=== PATIENT | female | born 1970 | race Caucasian/White ===

== ENCOUNTER 2019-06-27 00:14 | Inpatient (IN) | payer BC ==
[2019-06-27] VITALS (24 sets, daily range): BP systolic 82–140; BP diastolic 58–88
[~2019-06-27] VITALS: Ht 165.1 cm; Wt 75.3 kg
[2019-06-27] MEDS ORDERED: NALOXONE 2 MG/2 ML DISP.SYRIN. ONE (00:31)
[2019-06-27 01:00] LABS: BASO # 0.1 x10^3/uL (0.0-0.2); BASO % 2 % (0-3); EOS # 0.2 x10^3/uL (0.0-0.7); EOS % 4 % (0-3); HEMATOCRIT 36.8 % (36.0-47.0); HEMOGLOBIN 11.8 g/dL (12.0-15.5); LYMPH # 2.3 x10^3/uL (1.0-4.8); LYMPH % 47 % (24-48); MEAN CORPUSCULAR HEMOGLOBIN 27 pg (25-35); MEAN CORPUSCULAR HGB CONC 32 g/dL (31-37); MEAN CORPUSCULAR VOLUME 84 fL (79-100); MONO # 0.4 x10^3/uL (0.0-1.1); MONO % 8 % (0-9); NEUT # 1.9 x10^3/uL (1.8-7.7); NEUT % 40 % (31-73); PLATELET COUNT 183 x10^3/uL (140-400); RED CELL DISTRIBUTION WIDTH 16.1 % (11.5-14.5); WHITE BLOOD COUNT 4.9 x10^3/uL (4.0-11.0)
[2019-06-27] MEDS ORDERED: ROCURONIUM 50 MG/5 ML VIAL. IV ONE (01:00)
[2019-06-27] MEDS ORDERED: IV NORMAL SALINE 1000ML BAG 1,000 ML IV ONE (01:00)
[2019-06-27 01:05] LABS: BILIRUBIN,URINE NEGATIVE (NEG); CLARITY,URINE CLEAR; COLOR,URINE YELLOW; NITRITE,URINE NEGATIVE (NEG); PH,URINE 6.5; PROTEIN,URINE NEGATIVE (NEG-TRACE); UROBILINOGEN,URINE 0.2 mg/dL (0.2 mg/dL)
[2019-06-27 01:09] LABS: PREG TEST PT QUAL NEGATIVE (NEG)
[2019-06-27 01:11] LABS: CALCIUM 7.8 mg/dL (8.5-10.1); CREATININE 0.9 mg/dL (0.6-1.0); GFR 67.4; POTASSIUM 3.2 mmol/L (3.5-5.1)
[2019-06-27 01:13] LABS: AMORPHOUS SEDIMENT,UR PRESENT /HPF; BACTERIA,URINE 0 /HPF (0-FEW); BARBITURATES NEG (NEG); BENZODIAZEPINES NEG (NEG); CANNABINOIDS NEG (NEG); COCAINE NEG (NEG); METHADONE NEG (NEG); OPIATES NEG (NEG); PHENCYCLIDINE NEG (NEG); RBC,URINE 0 /HPF (0-2); SQUAMOUS EPITHELIAL CELL,UR FEW /LPF; WBC,URINE OCC /HPF (0-4)
[2019-06-27] MEDS ORDERED: NALOXONE 2 MG/2 ML DISP.SYRIN. IV ONE (01:15)
[2019-06-27 01:17] LABS: AMPHETAMINE/METHAMPHETAMINE NEG (NEG)
[2019-06-27 01:18] LABS: ALBUMIN 3.5 g/dL (3.4-5.0); ALBUMIN/GLOBULIN RATIO 0.9 (1.0-1.7); TOTAL BILIRUBIN 0.2 mg/dL (0.2-1.0); TOTAL PROTEIN 7.3 g/dL (6.4-8.2)
--- NOTE | 2019-06-27 01:20 | RAD ---
EXAM: CHEST 1 VIEW History: Post intubation COMPARISON: None available. TECHNIQUE: Single portable radiograph of the chest FINDINGS: The ET tube is identified in the trachea just above the level of the clavicles. The feeding tube is identified below the left diaphragm likely within the stomach. The lungs are clear bilaterally. The costophrenic sulci are clear and well demarcated. IMPRESSION: 1. ET tube, feeding tube in place. 2. The lungs are clear. Electronically signed by: Ubaldo Parker MD (06/27/2019 1:17 AM) [facility]
[2019-06-27] MEDS ORDERED: DEXTROSE 50% 25 GM / 50ML DISP.SYRIN. IV ONE (01:30)
[2019-06-27] MEDS ORDERED: SUCCINYLCHOLINE 200 MG/10 ML VIAL. ONE (01:39)
[2019-06-27] MEDS ORDERED: ETOMIDATE 20 MG/10 ML VIAL. IV ONE ×2 (01:39→07:00)
[2019-06-27] MEDS ORDERED: PROPOFOL 50 ML IV ONE ×2 (02:12→02:30)
[2019-06-27 02:20] LABS: BASE EXCESS COOX -4 mmol/L (-3-3); HCO3 COOX 21 mmol/L (21-28); METHEMOGLOBIN 0.5 % (0.0-1.9); OXYHEMOGLOBIN 98.2 %; PCO2 COOX 34 mmHg (35-46); PO2 COOX > 503 mmHg (75-108); SAT O2 COOX 99 % (92-99)
[2019-06-27] MEDS ORDERED: ONDANSETRON PF 4 MG/2 ML VIAL. IV PRN (02:30)
--- NOTE | 2019-06-27 02:59 | RAD ---
CT HEAD INDICATION: Altered mental status COMPARISON: None Available. Exposure: One or more of the following individualized dose reduction techniques were utilized for this examination: 1. Automated exposure control 2. Adjustment of the mA and/or kV according to patient size 3. Use of iterative reconstruction technique TECHNIQUE: 5 mm contiguous axial images were obtained from the skull base to the vertex in both bone and soft tissue algorithm. FINDINGS: No abnormal attenuation within the brain parenchyma. No evidence of acute intracranial hemorrhage. No extra-axial fluid collections. No mass effect or midline shift. Ventricular size is appropriate. Basal cisterns are patent. No fractures identified.Roy-white differentiation is preserved.Globes and orbits are within normal limits. Small mucous retention cyst or polyp identified in the right maxillary sinus. IMPRESSION: No acute intracranial findings. Electronically signed by: Ubaldo Parker MD (06/27/2019 2:57 AM) [id number]
[2019-06-27] MEDS ORDERED: CYCL10TA2 PO (04:09)
[2019-06-27] MEDS ORDERED: TOPI25TA52 PO (04:09)
--- NOTE | 2019-06-27 04:56 | NUR ---
Pt brought on bed to ICU room 105 by RT and two ED nurses at 0300. Pt transferred to ICU bed with 4x assist. Pt is intubated, and was bagged with oxygen upon transferring beds, but quickly placed onto the ventilator. Pt currently sedated well on propofol. VSS upon admission, pt afebrile. PERLLA. Lungs coarse-sounding when auscultated. Pts skin is cool to the touch and pale. Multiple scratch-like areas noted to pts bilateral upper thighs. Pt within site of care team; will continue to monitor.
--- NOTE | 2019-06-27 05:01 | PHYS DOC ---
Past Medical History Past Medical History: No Pertinent History Past Surgical History: Gastric Bypass Adult General Chief Complaint Chief Complaint: OVERDOSE HPI HPI Patient is a 48 year old with a mass unresponsive with respiratory failure secondary to intentional drug overdose. Patient told mother that she took a small handful of Flexeril and Topamax take dispute. Patient initially conversant and ambulatory on EMS arrival with decreased level of consciousness or depression during transport. GCS 8 on ED arrival. 4 mg of Narcan without response intubated shortly after ED arrival for airway protection. [] Review of Systems Review of Systems ROS as per HPI All other systems were reviewed and found to be within normal limits, except as documented in this note. Current Medications Current Medications Current Medications Medications (Trade) Dose Ordered Sig/Keiko Start Time Stop Time Status Last Admin Dose Admin Naloxone HCl (Narcan) 2 mg STK-MED ONCE 06/27/19 00:31 06/27/19 00:32 DC Physical Exam Physical Exam Constitutional: Unresponsive with respiratory depression.. [] HENT: Normocephalic, atraumatic, bilateral external ears normal, oropharynx moist, no oral exudates, nose normal. [] Eyes: Sluggishly reactive pupils, 2 mm and equal[] Neck: Supple [] Cardiovascular:Heart rate regular rhythm, no murmur [] Lungs & Thorax: Shallow respirations[] Abdomen: Bowel sounds normal, soft. [] Skin: Warm, dry. [] Back: No tenderness. Neurologic:GCS 8. [] Current Patient Data Vital Signs Vital Signs Date Time Temp Pulse Resp B/P (MAP) Pulse Ox O2 Delivery O2 Flow Rate FiO2 06/27/19 00:47 100 Ventilator 06/27/19 00:46 84 13 172/108 (129) 06/27/19 00:14 97.4 97.4 Lab Values Laboratory Tests Test 06/27/19 00:25 White Blood Count 4.9 x10^3/uL (4.0-11.0) Red Blood Count 4.40 x10^6/uL (3.50-5.40) Hemoglobin 11.8 g/dL (12.0-15.5) L Hematocrit 36.8 % (36.0-47.0) Mean Corpuscular Volume 84 fL (79-100) Mean Corpuscular Hemoglobin 27 pg (25-35) Mean Corpuscular Hemoglobin Concent 32 g/dL (31-37) Red Cell Distribution Width 16.1 % (11.5-14.5) H Platelet Count 183 x10^3/uL (140-400) Neutrophils (%) (Auto) 40 % (31-73) Lymphocytes (%) (Auto) 47 % (24-48) Monocytes (%) (Auto) 8 % (0-9) Eosinophils (%) (Auto) 4 % (0-3) H Basophils (%) (Auto) 2 % (0-3) Neutrophils # (Auto) 1.9 x10^3/uL (1.8-7.7) Lymphocytes # (Auto) 2.3 x10^3/uL (1.0-4.8) Monocytes # (Auto) 0.4 x10^3/uL (0.0-1.1) Eosinophils # (Auto) 0.2 x10^3/uL (0.0-0.7) Basophils # (Auto) 0.1 x10^3/uL (0.0-0.2) Sodium Level 144 mmol/L (136-145) Potassium Level 3.2 mmol/L (3.5-5.1) L Chloride Level 108 mmol/L (98-107) H Carbon Dioxide Level 26 mmol/L (21-32) Anion Gap 10 (6-14) Blood Urea Nitrogen 9 mg/dL (7-20) Creatinine 0.9 mg/dL (0.6-1.0) Estimated GFR (Cockcroft-Gault) 67.4 BUN/Creatinine Ratio 10 (6-20) Glucose Level 95 mg/dL (70-99) Calcium Level 7.8 mg/dL (8.5-10.1) L Total Bilirubin 0.2 mg/dL (0.2-1.0) Aspartate Amino Transferase (AST) 42 U/L (15-37) H Alanine Aminotransferase (ALT) 27 U/L (14-59) Alkaline Phosphatase 74 U/L (46-116) Total Protein 7.3 g/dL (6.4-8.2) Albumin 3.5 g/dL (3.4-5.0) Albumin/Globulin Ratio 0.9 (1.0-1.7) L Serum Test, Qualitative Negative (NEG) Ethyl Alcohol Level 289 mg/dL (0-10) H Laboratory Tests 06/27/19 00:25 Laboratory Tests 06/27/19 00:25 EKG EKG [EKG: reviewed] Radiology/Procedures Radiology/Procedures CXR: ETT and OG in correct position CT head: NAD Intubation procedure note Indication: Acute respiratory failure, need for airway protection Consent: emergent Anesthesia used: Etomidate 20 mg, succinylcholine [address] Shivam Hunter. Patient was acute in cardiovascular pulse oximeter monitors and placed on 15 L per a nasal cannula and oxygenated to 99%. Appropriate level of sedation, 7 mm endotracheal tube was inserted through the vocal cords via by mouth assisted laryngoscope. It was secured in place at 23 mm the lips. Location was confirmed with capnometry, visualization, tube fogging, chest rise, breath and sounds and chest x-ray. Patient tolerated procedure well without complications. Course & Med Decision Making Course & Med Decision Making Pertinent Labs and Imaging studies reviewed. (See chart for details) [Intentional drug overdose with decreased LOC and respiratory failure. Patient intubated and hemodynamically stable upon transfer to the ICU..] Dragon Disclaimer Dragon Disclaimer This electronic medical record was generated, in whole or in part, using a voice recognition dictation system. Departure Departure Impression: Primary Impression: Acute respiratory failure with hypoxemia Additional Impressions: Intentional drug overdose AMS (altered mental status) Disposition: ADMITTED INPATIENT Condition: STABLE Referrals: UNKNOWN PCP NAME (PCP) Problem Qualifiers SHIVAM HUNTER DO Jun 27, 2019 05:01
[2019-06-27] MEDS: PROPOFOL 100 ML IV PRN ×3 (05:16→23:50)
[2019-06-27] MEDS: IV NORMAL SALINE 1000ML BAG 1,000 ML IV SCH ×4 (05:19→18:13)
[2019-06-27] MEDS ORDERED: SUCCINYLCHOLINE 200 MG/10 ML VIAL. IV ONE (07:00)
--- NOTE | 2019-06-27 07:09 | PDOC ---
Provider Note Provider Note [id number] acute resp fail OD hypo k cont vent support until more alert see orders DOLLY ENCARNACION MD Jun 27, 2019 07:09
--- NOTE | 2019-06-27 07:26 | CONS ---
DATE OF CONSULTATION: 06/27/2019 I was asked to see this 48-year-old lady for acute respiratory failure. HISTORY OF PRESENT ILLNESS: The patient is on the ventilator and is sedated. She is not able to give any information. All of the information was obtained from chart and nursing staff. She is a 48-year-old lady who told her mother that she took Flexeril and Topamax and also drank alcohol. She was ambulatory on EMS arrival, but decreased level of consciousness on transport. Her GCS was 8 on arrival to the Emergency Room, she was intubated in the Emergency Room. She is currently intubated. She is not responsive. PAST MEDICAL HISTORY: Status post gastric bypass surgery. ALLERGIES: No known drug allergies. MEDICATIONS: Currently, she is on IV fluid. SOCIAL HISTORY: Unable to obtain. The patient is on the ventilator. FAMILY HISTORY: Unable to obtain. The patient is on the ventilator and is not responsive. REVIEW OF SYSTEMS: As mentioned as above, I have discussed the patient with RN, other systems otherwise negative. PHYSICAL EXAMINATION: GENERAL: This is a well-developed lady. VITAL SIGNS: Her O2 saturation on 40% FiO2 is 100%, respiratory rate 16, heart rate 65, temperature 98, and blood pressure 96/67. HEENT: Normocephalic, atraumatic. Pupils equal, round, reactive to light. Throat, she is orally intubated. Nose is clear. NECK: There is no lymphadenopathy or thyromegaly. CARDIOVASCULAR: Regular rate and rhythm. PMI is nondisplaced. CHEST: Inspection is normal. LUNGS: Clear to auscultation. Percussions within normal limit. ABDOMEN: Soft. Bowel sounds are good. There is no mass. EXTREMITIES: There is no edema. LYMPHATICS: There is no lymphadenopathy. NEUROLOGIC: She is on the ventilator, not responsive. SKIN: Warm. LYMPHATICS: There is no lymphadenopathy. I reviewed the following lab data: Chest x-ray: ET tube is in good position. There is no infiltrate. WBC 4.9, hemoglobin 11.8, platelets 183. ABG at 0106, pH 7.4, pCO2 of 34, pO2 more than 500, bicarbonate 21 on 100% FiO2. Sodium 144, potassium 3.2, chloride 108, CO2 26, glucose 95, BUN 9, creatinine 0.9, total bilirubin 0.2, AST 42, ALT 27, alkaline phosphatase 74. test was negative. Urine drug screen was negative. Alcohol level was 289. CT of head, there was no acute abnormality. IMPRESSION: 1. Acute respiratory failure secondary to drug overdose. 2. Intentional drug overdose. 3. Hypokalemia. 4. History of gastric bypass surgery. PLAN AND RECOMMENDATIONS: 1. Titrate FiO2 to keep O2 saturation 94%. 2. Continue ventilator support until the patient is more alert. Vent setting was reviewed. We will do ABG and review and change vent setting per ABG. 3. Start Pepcid and lovenox for prophylaxis. 4. replace k The findings and recommendations were discussed with RN and RT. Thank you very much for allowing me to participate in care of this very nice lady. DOLLY ENCARNACION M.D. DR: Hyaes JOB#: [id number] / [id number] SASHA
[2019-06-27] MEDS ORDERED: ACETAMINOPHEN 650 MG/20.3 ML SOLUTION. PEG PRN (07:30)
[2019-06-27] MEDS ORDERED: ONDANSETRON PF 4 MG/2 ML VIAL. IVP PRN (07:30)
[2019-06-27 07:49] LABS: BASE EXCESS ABG -5 mmol/L (-3-3); HCO3 ABG 21 mmol/L (21-28); PCO2 ABG 38 mmHg (35-46); PO2 ABG 215 mmHg (75-108); SAT O2 ABG 99 % (92-99)
[2019-06-27 07:50] LABS: FIO2 ABG 40
--- NOTE | 2019-06-27 08:01 | NUR ---
Pt belongings include medications, jewelry, and drivers license. Medications put into secure bag and given to pharmacy. Security picked up and secured jewelry and drivers license. Forms put into chart.
[2019-06-27 08:52] LABS: CALCIUM 7.6 mg/dL (8.5-10.1); CREATININE 0.7 mg/dL (0.6-1.0); GFR 90.1; POTASSIUM 3.1 mmol/L (3.5-5.1)
[2019-06-27] MEDS ORDERED: TOPIRAMATE 25 MG TABLET. PO SCH (09:00)
--- NOTE | 2019-06-27 09:00 | NUR ---
Pts 0900 Topramax held due to this being one of the medications pt overdosed on. Consulted with pharmacy that medication has 21 hour half life and should be held x 48 hours to ensure patient is back to baseline.
[2019-06-27] MEDS: FAMOTIDINE 20 MG/2 ML VIAL IVP SCH ×2 (09:43→21:27)
[2019-06-27] MEDS: CHLORHEXIDINE 0.12% 15 ML MOUTHWASH. MM SCH ×2 (09:43→21:28)
--- NOTE | 2019-06-27 09:43 | PDOC1 ---
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 Past Medical History CENTRAL NERVOUS SYSTEM: Migraine Past Surgical History Past Surgical History: No pertinent history Family History Family History: Family History Unknown Social History Smoke: No ALCOHOL: heavy Drugs: None Current Medications Current Medications Current Medications Naloxone HCl (Narcan) 2 mg STK-MED ONCE .ROUTE ; Start 06/27/19 at 00:31; Stop 06/27/19 at 00:32; Status DC Rocuronium [place] (Zemuron) 50 mg 1X ONCE IV Last administered on 06/27/19at 00:57; Start 06/27/19 at 01:00; Stop 06/27/19 at 01:05; Status DC Sodium Chloride 1,000 ml @ 1,000 mls/hr 1X ONCE IV Last administered on 06/27/19at 00:50; Start 06/27/19 at 01:00; Stop 06/27/19 at 01:59; Status DC Naloxone HCl (Narcan) 4 mg 1X ONCE IV Last administered on 06/27/19at 00:36; Start 06/27/19 at 01:15; Stop 06/27/19 at 01:16; Status DC Propofol 100 ml @ 0 mls/hr CONT PRN IV SEE PROTOCOL Last administered on 06/27/19at 05:16; Start 06/27/19 at 01:15 Chlorhexidine Gluconate (Peridex) 15 ml BID MM ; Start 06/27/19 at 09:00 Dextrose (Dextrose 50%-Water Syringe) 25 gm 1X ONCE IV Last administered on 06/27/19at 01:28; Start 06/27/19 at 01:30; Stop 06/27/19 at 01:31; Status DC Succinylcholine Chloride (Anectine) 200 mg STK-MED ONCE .ROUTE ; Start 06/27/19 at 01:39; Stop 06/27/19 at 01:39; Status DC Etomidate (Amidate) 20 mg STK-MED ONCE IV ; Start 06/27/19 at 01:39; Stop 06/27/19 at 01:40; Status DC Propofol 50 ml @ 1.185 mls/ hr 1X ONCE IV Last administered on 06/27/19at 02 :24; Start 06/27/19 at 02:30; Stop 06/28/19 at 20:41 Propofol 50 ml @ As Directed STK-MED ONCE IV ; Start 06/27/19 at 02:12; Stop 06/27/19 at 02:13; Status DC Ondansetron HCl (Zofran) 4 mg PRN Q8HRS PRN IV NAUSEA/VOMITING; Start 06/27/19 at 02:30; Stop 06/27/19 at 07:25; Status DC Sodium Chloride 1,000 ml @ 150 mls/hr Q6H40M IV Last administered on 06/27/19at 05:19; Start 06/27/19 at 02:30; Stop 06/28/19 at 02:29 Etomidate (Amidate) 20 mg 1X ONCE IV Last administered on 06/27/19at 00:42; Start 06/27/19 at 07:00; Stop 06/27/19 at 07:01; Status DC Succinylcholine Chloride (Anectine) 100 mg 1X ONCE IV Last administered on 06/27/19at 00:42; Start 06/27/19 at 07:00; Stop 06/27/19 at 07:01; Status DC Famotidine (Pepcid Vial) 20 mg BID IVP ; Start 06/27/19 at 09:00 Enoxaparin Sodium (Lovenox 40mg Syringe) 40 mg Q24H SQ ; Start 06/27/19 at 09:00 Acetaminophen (Tylenol) 650 mg PRN Q6HRS PRN PEG MILD PAIN / TEMP; Start 06/27/19 at 07:30 Ondansetron HCl (Zofran) 4 mg PRN Q6HRS PRN IVP NAUSEA/VOMITING; Start 06/27/19 at 07:30 Topiramate (Topamax) 25 mg BID PO ; Start 06/27/19 at 09:00 Potassium Chloride/Water 100 ml @ 100 mls/hr Q1H IV ; Start 06/27/19 at 10:00; Stop 06/27/19 at 13:59 Active Scripts Active Reported Cyclobenzaprine Hcl 10 Mg Tablet 1 Tab PO TID Topamax (Topiramate) 25 Mg Tablet 25 Mg PO BID Allergies Allergies: Coded Allergies: No Known Drug Allergies (Unverified , 06/27/19) ROS Review of System intubated,s edated Physical Exam General: No acute distress HEENT: Atraumatic, PERRLA Lungs: Clear to auscultation, Normal air movement Heart: S1S2, RRR, no thrills, no rubs, no gallops, no murmurs Cardiovascular: S1, S2 Breasts: Normal, Rt breast nml w/o mass, Lt breast nml w/o mass, Nipples normal Abdomen: Normal bowel sounds, Soft, No tenderness, No hepatosplenomegaly, No masses Male Genitals Exam: normal genitalia, normal prostate Rectal Exam: not examined PELVIC: Nml ext genitalia Extremities: No clubbing, No cyanosis, No edema, Normal pulses, No tenderness/swelling Skin: No rashes, No breakdown, No significant lesion Neuro: Reflexes 2+ Vitals Vitals Vital Signs Date Time Temp Pulse Resp B/P (MAP) Pulse Ox O2 Delivery O2 Flow Rate FiO2 06/27/19 08:38 99 Ventilator 06/27/19 08:00 98.1 69 16 94/68 (77) 98.1 Labs Labs Laboratory Tests Test 06/27/19 00:25 06/27/19 00:55 06/27/19 01:06 06/27/19 01:09 White Blood Count 4.9 x10^3/uL (4.0-11.0) Red Blood Count 4.40 x10^6/uL (3.50-5.40) Hemoglobin 11.8 g/dL (12.0-15.5) Hematocrit 36.8 % (36.0-47.0) Mean Corpuscular Volume 84 fL (79-100) Mean Corpuscular Hemoglobin 27 pg (25-35) Mean Corpuscular Hemoglobin Concent 32 g/dL (31-37) Red Cell Distribution Width 16.1 % (11.5-14.5) Platelet Count 183 x10^3/uL (140-400) Neutrophils (%) (Auto) 40 % (31-73) Lymphocytes (%) (Auto) 47 % (24-48) Monocytes (%) (Auto) 8 % (0-9) Eosinophils (%) (Auto) 4 % (0-3) Basophils (%) (Auto) 2 % (0-3) Neutrophils # (Auto) 1.9 x10^3/uL (1.8-7.7) Lymphocytes # (Auto) 2.3 x10^3/uL (1.0-4.8) Monocytes # (Auto) 0.4 x10^3/uL (0.0-1.1) Eosinophils # (Auto) 0.2 x10^3/uL (0.0-0.7) Basophils # (Auto) 0.1 x10^3/uL (0.0-0.2) Sodium Level 144 mmol/L (136-145) Potassium Level 3.2 mmol/L (3.5-5.1) Chloride Level 108 mmol/L (98-107) Carbon Dioxide Level 26 mmol/L (21-32) Anion Gap 10 (6-14) Blood Urea Nitrogen 9 mg/dL (7-20) Creatinine 0.9 mg/dL (0.6-1.0) Estimated GFR (Cockcroft-Gault) 67.4 BUN/Creatinine Ratio 10 (6-20) Glucose Level 95 mg/dL (70-99) Calcium Level 7.8 mg/dL (8.5-10.1) Total Bilirubin 0.2 mg/dL (0.2-1.0) Aspartate Amino Transf (AST/SGOT) 42 U/L (15-37) Alanine Aminotransferase (ALT/SGPT) 27 U/L (14-59) Alkaline Phosphatase 74 U/L (46-116) Total Protein 7.3 g/dL (6.4-8.2) Albumin 3.5 g/dL (3.4-5.0) Albumin/Globulin Ratio 0.9 (1.0-1.7) Serum Test, Qualitative Negative (NEG) Ethyl Alcohol Level 289 mg/dL (0-10) Urine Collection Type U cath Urine Color Yellow Urine Clarity Clear Urine pH 6.5 Urine Specific Caroleen 1.010 Urine Protein Negative mg/dL (NEG-TRACE) Urine Glucose (UA) Negative mg/dL (NEG) Urine Ketones (Stick) Negative mg/dL (NEG) Urine Blood Negative (NEG) Urine Nitrite Negative (NEG) Urine Bilirubin Negative (NEG) Urine Urobilinogen Dipstick 0.2 mg/dL (0.2 mg/dL) Urine Leukocyte Esterase Negative (NEG) Urine RBC 0 /HPF (0-2) Urine WBC Occ /HPF (0-4) Urine Squamous Epithelial Cells Few /LPF Urine Amorphous Sediment Present /HPF Urine Bacteria 0 /HPF (0-FEW) Urine Mucus Slight /LPF Urine Opiates Screen Neg (NEG) Urine Methadone Screen Neg (NEG) Urine Barbiturates Neg (NEG) Urine Phencyclidine Screen Neg (NEG) Urine Amphetamine/Methamphetamine Neg (NEG) Urine Benzodiazepines Screen Neg (NEG) Urine Cocaine Screen Neg (NEG) Urine Cannabinoids Screen Neg (NEG) Urine Ethyl Alcohol Pos (NEG) O2 Saturation 99 % (92-99) Arterial Blood pH 7.40 (7.35-7.45) Arterial Blood pCO2 at Patient Temp 34 mmHg (35-46) Arterial Blood pO2 at Patient Temp > 503 mmHg (75-108) Arterial Blood HCO3 21 mmol/L (21-28) Arterial Blood Base Excess -4 mmol/L (-3-3) Oxyhemoglobin 98.2 % Methemoglobin 0.5 % (0.0-1.9) Carbon Monoxide, Quantitative 0.3 % (0.0-1.9) FiO2 100 Glucose (Fingerstick) 67 mg/dL (70-99) Test 06/27/19 07:50 06/27/19 08:20 O2 Saturation 99 % (92-99) Arterial Blood pH 7.35 (7.35-7.45) Arterial Blood pCO2 at Patient Temp 38 mmHg (35-46) Arterial Blood pO2 at Patient Temp 215 mmHg (75-108) Arterial Blood HCO3 21 mmol/L (21-28) Arterial Blood Base Excess -5 mmol/L (-3-3) FiO2 40 Sodium Level 144 mmol/L (136-145) Potassium Level 3.1 mmol/L (3.5-5.1) Chloride Level 110 mmol/L (98-107) Carbon Dioxide Level 23 mmol/L (21-32) Anion Gap 11 (6-14) Blood Urea Nitrogen 7 mg/dL (7-20) Creatinine 0.7 mg/dL (0.6-1.0) Estimated GFR (Cockcroft-Gault) 90.1 Glucose Level 75 mg/dL (70-99) Calcium Level 7.6 mg/dL (8.5-10.1) Laboratory Tests Test 06/27/19 00:25 06/27/19 00:55 06/27/19 01:06 06/27/19 01:09 White Blood Count 4.9 x10^3/uL (4.0-11.0) Red Blood Count 4.40 x10^6/uL (3.50-5.40) Hemoglobin 11.8 g/dL (12.0-15.5) Hematocrit 36.8 % (36.0-47.0) Mean Corpuscular Volume 84 fL (79-100) Mean Corpuscular Hemoglobin 27 pg (25-35) Mean Corpuscular Hemoglobin Concent 32 g/dL (31-37) Red Cell Distribution Width 16.1 % (11.5-14.5) Platelet Count 183 x10^3/uL (140-400) Neutrophils (%) (Auto) 40 % (31-73) Lymphocytes (%) (Auto) 47 % (24-48) Monocytes (%) (Auto) 8 % (0-9) Eosinophils (%) (Auto) 4 % (0-3) Basophils (%) (Auto) 2 % (0-3) Neutrophils # (Auto) 1.9 x10^3/uL (1.8-7.7) Lymphocytes # (Auto) 2.3 x10^3/uL (1.0-4.8) Monocytes # (Auto) 0.4 x10^3/uL (0.0-1.1) Eosinophils # (Auto) 0.2 x10^3/uL (0.0-0.7) Basophils # (Auto) 0.1 x10^3/uL (0.0-0.2) Sodium Level 144 mmol/L (136-145) Potassium Level 3.2 mmol/L (3.5-5.1) Chloride Level 108 mmol/L (98-107) Carbon Dioxide Level 26 mmol/L (21-32) Anion Gap 10 (6-14) Blood Urea Nitrogen 9 mg/dL (7-20) Creatinine 0.9 mg/dL (0.6-1.0) Estimated GFR (Cockcroft-Gault) 67.4 BUN/Creatinine Ratio 10 (6-20) Glucose Level 95 mg/dL (70-99) Calcium Level 7.8 mg/dL (8.5-10.1) Total Bilirubin 0.2 mg/dL (0.2-1.0) Aspartate Amino Transf (AST/SGOT) 42 U/L (15-37) Alanine Aminotransferase (ALT/SGPT) 27 U/L (14-59) Alkaline Phosphatase 74 U/L (46-116) Total Protein 7.3 g/dL (6.4-8.2) Albumin 3.5 g/dL (3.4-5.0) Albumin/Globulin Ratio 0.9 (1.0-1.7) Serum Test, Qualitative Negative (NEG) Ethyl Alcohol Level 289 mg/dL (0-10) Urine Collection Type U cath Urine Color Yellow Urine Clarity Clear Urine pH 6.5 Urine Specific Caroleen 1.010 Urine Protein Negative mg/dL (NEG-TRACE) Urine Glucose (UA) Negative mg/dL (NEG) Urine Ketones (Stick) Negative mg/dL (NEG) Urine Blood Negative (NEG) Urine Nitrite Negative (NEG) Urine Bilirubin Negative (NEG) Urine Urobilinogen Dipstick 0.2 mg/dL (0.2 mg/dL) Urine Leukocyte Esterase Negative (NEG) Urine RBC 0 /HPF (0-2) Urine WBC Occ /HPF (0-4) Urine Squamous Epithelial Cells Few /LPF Urine Amorphous Sediment Present /HPF Urine Bacteria 0 /HPF (0-FEW) Urine Mucus Slight /LPF Urine Opiates Screen Neg (NEG) Urine Methadone Screen Neg (NEG) Urine Barbiturates Neg (NEG) Urine Phencyclidine Screen Neg (NEG) Urine Amphetamine/Methamphetamine Neg (NEG) Urine Benzodiazepines Screen Neg (NEG) Urine Cocaine Screen Neg (NEG) Urine Cannabinoids Screen Neg (NEG) Urine Ethyl Alcohol Pos (NEG) O2 Saturation 99 % (92-99) Arterial Blood pH 7.40 (7.35-7.45) Arterial Blood pCO2 at Patient Temp 34 mmHg (35-46) Arterial Blood pO2 at Patient Temp > 503 mmHg (75-108) Arterial Blood HCO3 21 mmol/L (21-28) Arterial Blood Base Excess -4 mmol/L (-3-3) Oxyhemoglobin 98.2 % Methemoglobin 0.5 % (0.0-1.9) Carbon Monoxide, Quantitative 0.3 % (0.0-1.9) FiO2 100 Glucose (Fingerstick) 67 mg/dL (70-99) Test 06/27/19 07:50 06/27/19 08:20 O2 Saturation 99 % (92-99) Arterial Blood pH 7.35 (7.35-7.45) Arterial Blood pCO2 at Patient Temp 38 mmHg (35-46) Arterial Blood pO2 at Patient Temp 215 mmHg (75-108) Arterial Blood HCO3 21 mmol/L (21-28) Arterial Blood Base Excess -5 mmol/L (-3-3) FiO2 40 Sodium Level 144 mmol/L (136-145) Potassium Level 3.1 mmol/L (3.5-5.1) Chloride Level 110 mmol/L (98-107) Carbon Dioxide Level 23 mmol/L (21-32) Anion Gap 11 (6-14) Blood Urea Nitrogen 7 mg/dL (7-20) Creatinine 0.7 mg/dL (0.6-1.0) Estimated GFR (Cockcroft-Gault) 90.1 Glucose Level 75 mg/dL (70-99) Calcium Level 7.6 mg/dL (8.5-10.1) VTE Prophylaxis Ordered VTE Prophylaxis Devices: Yes VTE Pharmacological Prophylaxi: Yes Assessment/Plan Assessment/Plan Acute respi failure IPPV on Admission ETOH 246 Migraines on topamax PLAn: vent bundle Possibly might be able to extubate soon PPIa nd DVt ppx while vented Start TF today friday no indication for abx for now 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
[2019-06-27] MEDS: ENOXAPARIN 40 MG/0.4 ML SYRINGE. SQ SCH (09:44)
[2019-06-27] MEDS: POTASSIUM CHLORIDE 10MEQ 100 ML IV SCH ×4 (09:44→12:57)
[2019-06-27] MEDS: MIDAZOLAM 100mg/100ml NS BAG 100 ML IV PRN ×2 (14:44→22:42)
--- NOTE | 2019-06-27 15:05 | EKG ---
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
[2019-06-28] VITALS (18 sets, daily range): BP systolic 108–144; BP diastolic 62–104
[2019-06-28] MEDS: PROPOFOL 100 ML IV PRN ×2 (04:23→08:52)
[2019-06-28 04:25] LABS: BASO % 1 % (0-3); EOS # 0.1 x10^3/uL (0.0-0.7); EOS % 1 % (0-3); HEMATOCRIT 31.4 % (36.0-47.0); LYMPH # 0.7 x10^3/uL (1.0-4.8); LYMPH % 14 % (24-48); MEAN CORPUSCULAR HEMOGLOBIN 27 pg (25-35); MEAN CORPUSCULAR HGB CONC 32 g/dL (31-37); MEAN CORPUSCULAR VOLUME 84 fL (79-100); MONO # 0.5 x10^3/uL (0.0-1.1); MONO % 10 % (0-9); NEUT # 3.9 x10^3/uL (1.8-7.7); NEUT % 74 % (31-73); PLATELET COUNT 138 x10^3/uL (140-400); RED BLOOD COUNT 3.76 x10^6/uL (3.50-5.40); RED CELL DISTRIBUTION WIDTH 16.3 % (11.5-14.5); WHITE BLOOD COUNT 5.3 x10^3/uL (4.0-11.0)
[2019-06-28 04:33] LABS: CALCIUM 8.1 mg/dL (8.5-10.1); CREATININE 0.7 mg/dL (0.6-1.0); GFR 90.1; POTASSIUM 3.3 mmol/L (3.5-5.1)
[2019-06-28] MEDS ORDERED: BUPR300T4 PO (05:48)
[2019-06-28] MEDS ORDERED: CLON-77 PO (05:48)
[2019-06-28] MEDS ORDERED: SERT100T8 PO (05:48)
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
[2019-06-28 09:25] LABS: BASE EXCESS ABG -5 mmol/L (-3-3); HCO3 ABG 19 mmol/L (21-28); PCO2 ABG 30 mmHg (35-46); PO2 ABG 148 mmHg (75-108); SAT O2 ABG 98 % (92-99)
[2019-06-28 09:27] LABS: FIO2 ABG 30
[2019-06-28] MEDS: FAMOTIDINE 20 MG/2 ML VIAL IVP SCH ×2 (09:57→21:00)
[2019-06-28] MEDS: ENOXAPARIN 40 MG/0.4 ML SYRINGE. SQ SCH (09:58)
--- NOTE | 2019-06-28 10:34 | PDOC ---
PULMONARY PROGRESS NOTES Subjective awake, off sedation AC mode Vitals Vital Signs Date Time Temp Pulse Resp B/P (MAP) Pulse Ox O2 Delivery O2 Flow Rate FiO2 06/28/19 10:05 72 16 130/104 (113) 100 Ventilator 06/28/19 07:00 97.8 97.8 General: Alert, No acute distress Lungs: Clear Cardiovascular: S1, S2 Abdomen: Soft Neuro Exam: Alert Extremities: No Edema Skin: Warm Labs Laboratory Tests Test 06/27/19 00:25 06/27/19 00:55 06/27/19 01:06 06/27/19 01:09 White Blood Count 4.9 x10^3/uL (4.0-11.0) Red Blood Count 4.40 x10^6/uL (3.50-5.40) Hemoglobin 11.8 g/dL (12.0-15.5) Hematocrit 36.8 % (36.0-47.0) Mean Corpuscular Volume 84 fL (79-100) Mean Corpuscular Hemoglobin 27 pg (25-35) Mean Corpuscular Hemoglobin Concent 32 g/dL (31-37) Red Cell Distribution Width 16.1 % (11.5-14.5) Platelet Count 183 x10^3/uL (140-400) Neutrophils (%) (Auto) 40 % (31-73) Lymphocytes (%) (Auto) 47 % (24-48) Monocytes (%) (Auto) 8 % (0-9) Eosinophils (%) (Auto) 4 % (0-3) Basophils (%) (Auto) 2 % (0-3) Neutrophils # (Auto) 1.9 x10^3/uL (1.8-7.7) Lymphocytes # (Auto) 2.3 x10^3/uL (1.0-4.8) Monocytes # (Auto) 0.4 x10^3/uL (0.0-1.1) Eosinophils # (Auto) 0.2 x10^3/uL (0.0-0.7) Basophils # (Auto) 0.1 x10^3/uL (0.0-0.2) Sodium Level 144 mmol/L (136-145) Potassium Level 3.2 mmol/L (3.5-5.1) Chloride Level 108 mmol/L (98-107) Carbon Dioxide Level 26 mmol/L (21-32) Anion Gap 10 (6-14) Blood Urea Nitrogen 9 mg/dL (7-20) Creatinine 0.9 mg/dL (0.6-1.0) Estimated GFR (Cockcroft-Gault) 67.4 BUN/Creatinine Ratio 10 (6-20) Glucose Level 95 mg/dL (70-99) Calcium Level 7.8 mg/dL (8.5-10.1) Total Bilirubin 0.2 mg/dL (0.2-1.0) Aspartate Amino Transf (AST/SGOT) 42 U/L (15-37) Alanine Aminotransferase (ALT/SGPT) 27 U/L (14-59) Alkaline Phosphatase 74 U/L (46-116) Total Protein 7.3 g/dL (6.4-8.2) Albumin 3.5 g/dL (3.4-5.0) Albumin/Globulin Ratio 0.9 (1.0-1.7) Serum Test, Qualitative Negative (NEG) Ethyl Alcohol Level 289 mg/dL (0-10) Urine Collection Type U cath Urine Color Yellow Urine Clarity Clear Urine pH 6.5 Urine Specific [place] 1.010 Urine Protein Negative mg/dL (NEG-TRACE) Urine Glucose (UA) Negative mg/dL (NEG) Urine Ketones (Stick) Negative mg/dL (NEG) Urine Blood Negative (NEG) Urine Nitrite Negative (NEG) Urine Bilirubin Negative (NEG) Urine Urobilinogen Dipstick 0.2 mg/dL (0.2 mg/dL) Urine Leukocyte Esterase Negative (NEG) Urine RBC 0 /HPF (0-2) Urine WBC Occ /HPF (0-4) Urine Squamous Epithelial Cells Few /LPF Urine Amorphous Sediment Present /HPF Urine Bacteria 0 /HPF (0-FEW) Urine Mucus Slight /LPF Urine Opiates Screen Neg (NEG) Urine Methadone Screen Neg (NEG) Urine Barbiturates Neg (NEG) Urine Phencyclidine Screen Neg (NEG) Urine Amphetamine/Methamphetamine Neg (NEG) Urine Benzodiazepines Screen Neg (NEG) Urine Cocaine Screen Neg (NEG) Urine Cannabinoids Screen Neg (NEG) Urine Ethyl Alcohol Pos (NEG) O2 Saturation 99 % (92-99) Arterial Blood pH 7.40 (7.35-7.45) Arterial Blood pCO2 at Patient Temp 34 mmHg (35-46) Arterial Blood pO2 at Patient Temp > 503 mmHg (75-108) Arterial Blood HCO3 21 mmol/L (21-28) Arterial Blood Base Excess -4 mmol/L (-3-3) Oxyhemoglobin 98.2 % Methemoglobin 0.5 % (0.0-1.9) Carbon Monoxide, Quantitative 0.3 % (0.0-1.9) FiO2 100 Glucose (Fingerstick) 67 mg/dL (70-99) Test 06/27/19 07:50 06/27/19 08:20 06/28/19 04:00 06/28/19 08:45 O2 Saturation 99 % (92-99) 98 % (92-99) Arterial Blood pH 7.35 (7.35-7.45) 7.42 (7.35-7.45) Arterial Blood pCO2 at Patient Temp 38 mmHg (35-46) 30 mmHg (35-46) Arterial Blood pO2 at Patient Temp 215 mmHg (75-108) 148 mmHg (75-108) Arterial Blood HCO3 21 mmol/L (21-28) 19 mmol/L (21-28) Arterial Blood Base Excess -5 mmol/L (-3-3) -5 mmol/L (-3-3) FiO2 40 30 Sodium Level 144 mmol/L (136-145) 138 mmol/L (136-145) Potassium Level 3.1 mmol/L (3.5-5.1) 3.3 mmol/L (3.5-5.1) Chloride Level 110 mmol/L (98-107) 108 mmol/L (98-107) Carbon Dioxide Level 23 mmol/L (21-32) 21 mmol/L (21-32) Anion Gap 11 (6-14) 9 (6-14) Blood Urea Nitrogen 7 mg/dL (7-20) 9 mg/dL (7-20) Creatinine 0.7 mg/dL (0.6-1.0) 0.7 mg/dL (0.6-1.0) Estimated GFR (Cockcroft-Gault) 90.1 90.1 Glucose Level 75 mg/dL (70-99) 102 mg/dL (70-99) Calcium Level 7.6 mg/dL (8.5-10.1) 8.1 mg/dL (8.5-10.1) White Blood Count 5.3 x10^3/uL (4.0-11.0) Red Blood Count 3.76 x10^6/uL (3.50-5.40) Hemoglobin 10.0 g/dL (12.0-15.5) Hematocrit 31.4 % (36.0-47.0) Mean Corpuscular Volume 84 fL (79-100) Mean Corpuscular Hemoglobin 27 pg (25-35) Mean Corpuscular Hemoglobin Concent 32 g/dL (31-37) Red Cell Distribution Width 16.3 % (11.5-14.5) Platelet Count 138 x10^3/uL (140-400) Neutrophils (%) (Auto) 74 % (31-73) Lymphocytes (%) (Auto) 14 % (24-48) Monocytes (%) (Auto) 10 % (0-9) Eosinophils (%) (Auto) 1 % (0-3) Basophils (%) (Auto) 1 % (0-3) Neutrophils # (Auto) 3.9 x10^3/uL (1.8-7.7) Lymphocytes # (Auto) 0.7 x10^3/uL (1.0-4.8) Monocytes # (Auto) 0.5 x10^3/uL (0.0-1.1) Eosinophils # (Auto) 0.1 x10^3/uL (0.0-0.7) Basophils # (Auto) 0.0 x10^3/uL (0.0-0.2) Magnesium Level 1.9 mg/dL (1.8-2.4) Laboratory Tests Test 06/28/19 04:00 06/28/19 08:45 White Blood Count 5.3 x10^3/uL (4.0-11.0) Red Blood Count 3.76 x10^6/uL (3.50-5.40) Hemoglobin 10.0 g/dL (12.0-15.5) Hematocrit 31.4 % (36.0-47.0) Mean Corpuscular Volume 84 fL (79-100) Mean Corpuscular Hemoglobin 27 pg (25-35) Mean Corpuscular Hemoglobin Concent 32 g/dL (31-37) Red Cell Distribution Width 16.3 % (11.5-14.5) Platelet Count 138 x10^3/uL (140-400) Neutrophils (%) (Auto) 74 % (31-73) Lymphocytes (%) (Auto) 14 % (24-48) Monocytes (%) (Auto) 10 % (0-9) Eosinophils (%) (Auto) 1 % (0-3) Basophils (%) (Auto) 1 % (0-3) Neutrophils # (Auto) 3.9 x10^3/uL (1.8-7.7) Lymphocytes # (Auto) 0.7 x10^3/uL (1.0-4.8) Monocytes # (Auto) 0.5 x10^3/uL (0.0-1.1) Eosinophils # (Auto) 0.1 x10^3/uL (0.0-0.7) Basophils # (Auto) 0.0 x10^3/uL (0.0-0.2) Sodium Level 138 mmol/L (136-145) Potassium Level 3.3 mmol/L (3.5-5.1) Chloride Level 108 mmol/L (98-107) Carbon Dioxide Level 21 mmol/L (21-32) Anion Gap 9 (6-14) Blood Urea Nitrogen 9 mg/dL (7-20) Creatinine 0.7 mg/dL (0.6-1.0) Estimated GFR (Cockcroft-Gault) 90.1 Glucose Level 102 mg/dL (70-99) Calcium Level 8.1 mg/dL (8.5-10.1) Magnesium Level 1.9 mg/dL (1.8-2.4) O2 Saturation 98 % (92-99) Arterial Blood pH 7.42 (7.35-7.45) Arterial Blood pCO2 at Patient Temp 30 mmHg (35-46) Arterial Blood pO2 at Patient Temp 148 mmHg (75-108) Arterial Blood HCO3 19 mmol/L (21-28) Arterial Blood Base Excess -5 mmol/L (-3-3) FiO2 30 Medications Active Scripts Medications Dose Route/Sig Max Daily Dose Days Date Category Clonazepam (Clonazepam) 0.5 Mg Tablet 0.5 Mg PO PRN BID PRN 06/28/19 Reported Sertraline Hcl 100 Mg Tablet 150 Mg PO DAILY 06/28/19 Reported Bupropion Xl (Bupropion Hcl) 300 Mg Tab.er.24h 1 Tab PO DAILY 06/28/19 Reported Cyclobenzaprine Hcl 10 Mg Tablet 1 Tab PO TID 06/27/19 Reported Topamax (Topiramate) 25 Mg Tablet 25 Mg PO BID 06/27/19 Reported Impression . IMPRESSION: 1. Acute respiratory failure secondary to drug overdose/ toxic encephalopathy 2. Intentional drug overdose. 3. Hypokalemia. 4. History of gastric bypass surgery. 5. clear cxr Plan . 1. Titrate FiO2 to keep O2 saturation 94%. 2. off sedation. awake, will do CPAP trial and extubation today 3. Pepcid and lovenox for prophylaxis. 4. replace k 5. Psyc consult/ suicidal ideation The findings and recommendations were discussed with RN and RT. LOUISE MATA MD Jun 28, 2019 10:34
[2019-06-28 11:17] LABS: BASE EXCESS ABG -5 mmol/L (-3-3); HCO3 ABG 19 mmol/L (21-28); PCO2 ABG 33 mmHg (35-46); PO2 ABG 138 mmHg (75-108); SAT O2 ABG 98 % (92-99)
[2019-06-28 11:18] LABS: FIO2 ABG 30
--- NOTE | 2019-06-28 15:07 | RAD ---
Portable chest x-ray compared to similar examination dated 06/27/2019 for ventilator patient. FINDINGS: Endotracheal tube and enteric tubes are appropriately positioned. Lungs are grossly unremarkable. Heart size within normal limits. IMPRESSION: 1. Stable chest x-ray with no acute cardiopulmonary abnormality. Electronically signed by: Neo Schwarz MD (06/28/2019 3:04 PM) [id number]
--- NOTE | 2019-06-28 15:13 | NUR ---
CARLOS Pugh from PAT team cleared patient from 1:1. Ok per Dr. Foley to transfer patient out of ICU. Patient VSS, eating.
--- NOTE | 2019-06-28 15:14 | NUR ---
SS following for discharge planning. Pt is from home and has been extubated. Keaton from the PAT team contacted and came to assess pt. Keaton contacted SS and reported that pt is not SI and does not need 1:1. He reported that he offered RSI to pt and pt declined inpatient services. Keaton reported that he provided pt with referral to the [facility] and [facility] for outpatient services and provided pt with resources. Physician notified. SS will continue to follow.
[2019-06-28] MEDS: POTASSIUM CHLORIDE 10MEQ 100 ML IV SCH ×2 (17:11→20:53)
[2019-06-28] MEDS ORDERED: ZOLPIDEM 5 MG TABLET. PO PRN (20:30)
[2019-06-28] MEDS: PHENOL ORAL SPRAY 177ML BOTTLE. PO PRN (20:53)
[2019-06-28] MEDS ORDERED: clonazePAM 0.5 MG TABLET PO PRN (21:30)
[2019-06-28] MEDS: CYCLOBENZAPRINE 10 MG TABLET. PO SCH (21:41)
[2019-06-29] MEDS: POTASSIUM CHLORIDE 10MEQ 100 ML IV SCH ×2 (00:12→01:52)
[2019-06-29] MEDS: PHENOL ORAL SPRAY 177ML BOTTLE. PO PRN ×2 (01:51→09:56)
[2019-06-29 03:45] VITALS: BP 125/82
[2019-06-29 07:35] VITALS: BP 135/85
[2019-06-29] MEDS: CYCLOBENZAPRINE 10 MG TABLET. PO SCH ×2 (09:00→14:00)
[2019-06-29] MEDS ORDERED: SERTRALINE 50 MG TABLET. PO SCH (09:00)
[2019-06-29] MEDS ORDERED: buPROPion XL 150 MG TAB.ER.24H. PO SCH (09:00)
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
[2019-06-29] MEDS ORDERED: POTASSIUM CHLORIDE 20 MEQ TABLET.ER. PO ONE (09:15)
[2019-06-29] MEDS: FAMOTIDINE 20 MG/2 ML VIAL IVP SCH (09:56)
[2019-06-29] MEDS: ENOXAPARIN 40 MG/0.4 ML SYRINGE. SQ SCH (09:56)
[2019-06-29 11:00] VITALS: BP 128/80
--- NOTE | 2019-06-29 11:38 | PDOC ---
PULMONARY PROGRESS NOTES Subjective extubated 06/28 doing well on RA Vitals Vital Signs Date Time Temp Pulse Resp B/P (MAP) Pulse Ox O2 Delivery O2 Flow Rate FiO2 06/29/19 11:00 98.3 78 18 128/80 (96) 99 Room Air 98.3 06/28/19 20:05 2.0 General: Alert, No acute distress Lungs: Clear Cardiovascular: S1, S2 Abdomen: Soft Neuro Exam: Alert Extremities: No Edema Skin: Warm Labs Laboratory Tests Test 06/28/19 04:00 06/28/19 08:45 06/28/19 11:12 White Blood Count 5.3 x10^3/uL (4.0-11.0) Red Blood Count 3.76 x10^6/uL (3.50-5.40) Hemoglobin 10.0 g/dL (12.0-15.5) Hematocrit 31.4 % (36.0-47.0) Mean Corpuscular Volume 84 fL (79-100) Mean Corpuscular Hemoglobin 27 pg (25-35) Mean Corpuscular Hemoglobin Concent 32 g/dL (31-37) Red Cell Distribution Width 16.3 % (11.5-14.5) Platelet Count 138 x10^3/uL (140-400) Neutrophils (%) (Auto) 74 % (31-73) Lymphocytes (%) (Auto) 14 % (24-48) Monocytes (%) (Auto) 10 % (0-9) Eosinophils (%) (Auto) 1 % (0-3) Basophils (%) (Auto) 1 % (0-3) Neutrophils # (Auto) 3.9 x10^3/uL (1.8-7.7) Lymphocytes # (Auto) 0.7 x10^3/uL (1.0-4.8) Monocytes # (Auto) 0.5 x10^3/uL (0.0-1.1) Eosinophils # (Auto) 0.1 x10^3/uL (0.0-0.7) Basophils # (Auto) 0.0 x10^3/uL (0.0-0.2) Sodium Level 138 mmol/L (136-145) Potassium Level 3.3 mmol/L (3.5-5.1) Chloride Level 108 mmol/L (98-107) Carbon Dioxide Level 21 mmol/L (21-32) Anion Gap 9 (6-14) Blood Urea Nitrogen 9 mg/dL (7-20) Creatinine 0.7 mg/dL (0.6-1.0) Estimated GFR (Cockcroft-Gault) 90.1 Glucose Level 102 mg/dL (70-99) Calcium Level 8.1 mg/dL (8.5-10.1) Magnesium Level 1.9 mg/dL (1.8-2.4) O2 Saturation 98 % (92-99) 98 % (92-99) Arterial Blood pH 7.42 (7.35-7.45) 7.39 (7.35-7.45) Arterial Blood pCO2 at Patient Temp 30 mmHg (35-46) 33 mmHg (35-46) Arterial Blood pO2 at Patient Temp 148 mmHg (75-108) 138 mmHg (75-108) Arterial Blood HCO3 19 mmol/L (21-28) 19 mmol/L (21-28) Arterial Blood Base Excess -5 mmol/L (-3-3) -5 mmol/L (-3-3) FiO2 30 30 Medications Active Scripts Medications Dose Route/Sig Max Daily Dose Days Date Category Clonazepam (Clonazepam) 0.5 Mg Tablet 0.5 Mg PO PRN BID PRN 06/28/19 Reported Sertraline Hcl 100 Mg Tablet 150 Mg PO DAILY 06/28/19 Reported Bupropion Xl (Bupropion Hcl) 300 Mg Tab.er.24h 1 Tab PO DAILY 06/28/19 Reported Cyclobenzaprine Hcl 10 Mg Tablet 1 Tab PO TID 06/27/19 Reported Topamax (Topiramate) 25 Mg Tablet 25 Mg PO BID 06/27/19 Reported Impression . IMPRESSION: 1. Acute respiratory failure secondary to drug overdose/ toxic encephalopathy 2. Intentional drug overdose. 3. Hypokalemia. 4. History of gastric bypass surgery. 5. clear cxr Plan . 1. extubated 06/28, doing well on RA 5. Psyc consult/ suicidal ideation The findings and recommendations were discussed with CARLOS steven sign off LOUISE MATA MD Jun 29, 2019 11:37
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
[2019-06-29] MEDS ORDERED: POTA20TA4 PO (12:51)
--- NOTE | 2019-06-29 12:53 | DISCH ---
DISCHARGE INSTRUCTIONS Condition on Discharge Condition on Discharge: Stable Activity After Discharge Activity Instructions for Disc: Activity as tolerated Driving Instructions after Dis: Do not drive today Diet after Discharge Diet after Discharge: Regular Checks after Discharge Checks after discharge: Check blood press - daily Contacting the DR. after DC Call your doctor for: If your condition worsens LAKIA CRUZ MD Jun 29, 2019 12:53
[2019-06-29 15:00] VITALS: BP 133/86
--- NOTE | 2019-06-29 17:24 | NUR ---
Pt discharged home. Discharge teaching was done with pt and family. Pt notified to follow up with azucena Carreno. Iv was removed and tele monitor was removed. Pt was taken out by wheelchair with transportation provided by family.
[2019-06-30] MEDS ORDERED: POTASSIUM CHLORIDE 20 MEQ TABLET.ER. PO SCH (08:00)
== END 2019-06-29 17:17 | disposition home or self-care (01) | DRG 917 ==
LOC: ER 00:14 → 1 WEST ICU 00:48 → 6 SOUTH 06-28 16:59 → 6 NORTH 06-28 17:31 → 6 SOUTH 06-28 17:34
PROVIDERS: ADMIT Internal Medicine; ATTEND Internal Medicine
PROC: 5A1935Z Respiratory Ventilation, Less than 24 Consecutive Hours (ICD-10-PCS; principal; 2019-06-27)
PROC: 0BH17EZ Insertion of Endotracheal Airway into Trachea, Via Natural or Artificial Opening (ICD-10-PCS; 2019-06-27)
DX: T42.6X1A Poisoning by other antiepileptic and sedative-hypnotic drugs, accidental (unintentional), initial encounter (principal); G92 Toxic encephalopathy; J96.01 Acute respiratory failure with hypoxia; E87.6 Hypokalemia; F10.10 Alcohol abuse, uncomplicated; F32.9 Major depressive disorder, single episode, unspecified; G43.909 Migraine, unspecified, not intractable, without status migrainosus; Y90.8 Blood alcohol level of 240 mg/100 ml or more; Z98.84 Bariatric surgery status
CPT/HCPCS: 36415; 36600; 51702; 70450; 71045; 80048; 80053; 80307; 81001; 82805; 82962; 83735; 84703; 85025; 93005; 94002; 94003; 96361; 96374; 96375; G0480; J0330; J1650; J2250; J2310; J2704; J3480; J3490; J7030; J7042; 99285-25; G0378